=== PATIENT | male | born 1970 | race Caucasian/White ===

== ENCOUNTER 2018-02-18 20:25 | Emergency (ER) | payer SELFPAY ==
[2018-02-18] MEDS ORDERED: HYDROCODONE/ACETAMINOPHEN 5-325 MG TABLET PO ONE (21:56)
--- NOTE | 2018-02-18 22:07 | RADIOLOGY REPORT (SQ) ---
EXAM DESCRIPTION: XR KNEE 4 OR MORE VIEWS COMPLETED DATE/TME: 02/18/2018 00:00 CLINICAL HISTORY: 47 years, Male, Twisted R knee 1 wk ago. Swollen/ sore Findings: Bony alignment is anatomic. No fracture or dislocation. No significant joint effusion. Tibia right is in place. IMPRESSION: No fracture.
[2018-02-18] MEDS ORDERED: HYDROCODONE/ACETAMINOPHEN 5-325 MG (6 TAB/ER DISP) PO PRN (22:14)
--- NOTE | 2018-02-18 22:17 | ER Document Report ---
HPI - HPI Patient complains to provider of: Right knee pain Time Seen by Provider: 02/18/18 21:49 Onset: Last week Onset/Duration: Persistent Quality of pain: Achy Pain Level: 4 Context: Patient states he was walking and accidentally twisted his knee last week. Patient complains of persistent right knee pain since then. Associated Symptoms: Other - Right knee pain Exacerbated by: Standing, Movement, Walking Relieved by: Denies Similar symptoms previously: No Recently seen / treated by doctor: No - ROS ROS below otherwise negative: Yes Systems Reviewed and Negative: Yes All other systems reviewed and negative - NEURO Neurology: DENIES: Weakness - MUSCULOSKELETAL Musculoskeletal: REPORTS: Extremity pain, Swelling - DERM Skin Color: Normal Skin Problems: None Past Medical History - General Information source: Patient - Social History Smoking Status: Current Every Day Smoker Smoking Education Provided: Yes Frequency of alcohol use: Occasional Drug Abuse: None Occupation: [employer] Lives with: Family Family History: Reviewed & Not Pertinent - Medical History Medical History: Negative Past Surgical History: Reports: Hx Herniorrhaphy, Hx Orthopedic Surgery Vertical Provider Document - CONSTITUTIONAL Agree With Documented VS: Yes Exam Limitations: No Limitations General Appearance: WD/WN, No Apparent Distress - INFECTION CONTROL TRAVEL OUTSIDE OF THE [place] IN LAST 30 DAYS: No - HEENT HEENT: Atraumatic, Normocephalic - NECK Neck: Normal Inspection - RESPIRATORY Respiratory: No Respiratory Distress - CARDIOVASCULAR Pulses: Normal: Popliteal, Dorsalis pedis - MUSCULOSKELETAL/EXTREMETIES Musculoskeletal/Extremeties: MAEW, FROM, Tender - Right knee joint tenderness to lateral superior and medial inferior compartments. Mild joint effusion. Normal skin color and temperature overlying joint. No laxity with varus or valgus maneuvers. Patellar tendon intact, Edema - NEURO Level of Consciousness: Awake, Alert, Appropriate Motor/Sensory: No Motor Deficit - DERM Integumentary: Warm, Dry, No Rash Course - Diagnostic Test Radiology reviewed: Reports reviewed Procedures - Immobilization Right Knee Pre-Proc Neuro Vasc Exam: Normal Immobilizer type: Knee immobilizer Performed by: PCT Post-Proc Neuro Vasc Exam: Normal Alignment checked and good: Yes Discharge - Discharge Clinical Impression: Right knee sprain Qualifiers: Encounter type: initial encounter Involved ligament of knee: unspecified ligament Qualified Code(s): S83.91XA - Sprain of unspecified site of right knee , initial encounter Condition: Stable Disposition: HOME, SELF-CARE Instructions: Use of Crutches ([facility]), Ice & Elevation ([facility]), Knee Immobilizing Splint ([facility]), Oral Narcotic Medication ([facility]), Sprained Knee ([facility]) Additional Instructions: Return immediately for any new or worsening symptoms Followup with your primary care provider, call tomorrow to make a followup appointment Weight bearing as tolerated Follow up with orthopedics for any persistent pain or problems Prescriptions: Naproxen [Naprosyn 250 Nmg Tablet] 1 tab PO BID #14 tablet Forms: Smoking Cessation Education, Return to Work Referrals: [facility] ([place]) [Provider Group] - Follow up as needed
[2018-02-18 22:40] VITALS: BP 116/57
== END 2018-02-18 22:39 | disposition home or self-care (01) ==
LOC: ER 20:25
DX: S83.91XA Sprain of unspecified site of right knee, initial encounter (principal); M25.561 Pain in right knee; X50.1XXA Overexertion from prolonged static or awkward postures, initial encounter; F17.200 Nicotine dependence, unspecified, uncomplicated
CPT/HCPCS: 99284; 73564; L1830

== ENCOUNTER 2018-03-21 12:17 | Emergency (ER) | payer SELFPAY ==
[2018-03-21] MEDS ORDERED: LIDOCAINE 1% INJ-PF (10 MG/ML) 30 ML SDV INJ ONE (13:12)
--- NOTE | 2018-03-21 13:34 | ER Document Report ---
HPI - HPI Time Seen by Provider: 03/21/18 13:12 Pain Level: 3 Notes: Patient is a 48-year-old male who presents to the ED complaining of left medial wrist pain shortness of breath laceration status post injury prior to arrival. 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 Patient states that he does not have any other associated pain to the wrist or the hand. Is able to move his hand without any difficulties. No associated numbness or tingling. Denies any drug allergies. No IV drug abuse. Denies any headache, fever, head injury, LOC, neck pain, changes in vision/speech/mentation/hearing, URI, sore throat, chest pain, palpitations, syncope, cough, shortness of breath, wheeze, dyspnea, abdominal pain, nausea/vomiting/diarrhea, urinary retention, dysuria, hematuria, muscle paralysis/weakness, or rash. - ROS Systems Reviewed and Negative: Yes All other systems reviewed and negative - MUSCULOSKELETAL Musculoskeletal: REPORTS: Extremity pain Past Medical History - Social History Smoking Status: Current Every Day Smoker Family History: Reviewed & Not Pertinent Patient has suicidal ideation: No Patient has homicidal ideation: No Renal/ Medical History: Denies: Hx Peritoneal Dialysis Past Surgical History: Reports: Hx Herniorrhaphy, Hx Orthopedic Surgery Vertical Provider Document - CONSTITUTIONAL Agree With Documented VS: Yes Notes: PHYSICAL EXAMINATION: GENERAL: Well-appearing, well-nourished and in no acute distress. HEAD: Atraumatic, normocephalic. EYES: Pupils equal round and reactive to light, extraocular movements intact, sclera anicteric, conjunctiva are normal. ENT: Nares patent and without discharge. oropharynx clear without exudates. No tonsilar hypertrophy or erythema. Moist mucous membranes. NECK: Normal range of motion, supple without lymphadenopathy LUNGS: Breath sounds clear to auscultation bilaterally and equal. No wheezes rales or rhonchi. HEART: Regular rate and rhythm without murmurs, rubs, gallops. Musculoskeletal: Lt wrist/hand: FROM to passive/active. Strength 5+/5. + irregular, superficial, 2cm laceration noted to the medial wrist. No active bleeding. No obvious foreign body. Extremities: No cyanosis, clubbing, or edema b/l. Peripheral pulses 2+. Capillary refill less than 3 seconds. NEUROLOGICAL: Cranial nerves grossly intact. Normal speech, normal gait. Normal sensory, motor exams PSYCH: Normal mood, normal affect. SKIN: Warm, Dry, normal turgor, no rashes or lesions noted. - INFECTION CONTROL TRAVEL OUTSIDE OF THE [place] IN LAST 30 DAYS: No Course - Re-evaluation Re-evalutation: 03/21/18 14:29 Patient is an afebrile, well-hydrated, 48-year-old male who presents to the ED with a skin laceration to his left wrist. Vitals are acceptable. PE is otherwise unremarkable for any neurovascular compromise, obvious transitionally rupture, obvious fracture/dislocation, septic joint. Wound was thoroughly irrigated and cleansed. Wound edges were approximated appropriately utilizing 6 interrupted sutures. Wound dressing was placed and wound instructions reviewed. Tetanus is reported to be up-to-date within the last year. No labs or imaging warranted at this time. I will send him home with a prescription for Keflex. Conservative measures otherwise for symptoms. Recheck with your PCM in 2-3 days. Return to the ED with any worsening/concerning symptoms otherwise as reviewed. Sutures will need removed in 10 days. Patient is in agreement. - Vital Signs Vital signs: Temp Pulse Resp BP Pulse Ox 98.0 F 71 16 121/75 94 03/21/18 12:22 03/21/18 12:22 03/21/18 12:22 03/21/18 12:22 03/21/18 12:22 Discharge - Discharge Clinical Impression: Laceration of left wrist Qualifiers: Encounter type: initial encounter Qualified Code(s): S61.512A - Laceration wit hout foreign body of left wrist, initial encounter Condition: Stable Disposition: HOME, SELF-CARE Instructions: Antibiotic Ointment Protection ([facility]), Soap Cleansing ([facility]), Laceration Care ([facility]), Prophylactic Antibiotic ([facility]) Additional Instructions: Do not shower or bathe for 24 hours. After 24 hours you may shower but no submersion of the wound under water. Keep the original dressing on the wound for 24 hours unless the drainage soaks through. Change the dressing daily thereafter and keep the knots of the suture material clean from any dried discharge. You may leave the wound open to the air once there is no more discharge. Return to the ED and/or your PCM in 2-3 days for a recheck. Monitor for any signs of worsening pain or redness, purulent drainage, streaks, and/or fever. Return to the ED if noticing any of the above symptoms or as needed. Take medications as directed. Your sutures will need to be removed in 10 days. Prescriptions: Cephalexin Monohydrate [Keflex 500 mg Capsule] 500 mg PO BID #14 capsule Forms: Smoking Cessation Education Referrals: [facility] ([place]) [Provider Group] - Follow up as needed
[2018-03-21 14:47] VITALS: BP 126/75
== END 2018-03-21 14:52 | disposition home or self-care (01) ==
LOC: ER 12:17
DX: S61.512A Laceration without foreign body of left wrist, initial encounter (principal); R06.02 Shortness of breath; W45.0XXA Nail entering through skin, initial encounter; Y93.H3 Activity, building and construction; Y99.0 Civilian activity done for income or pay; F17.200 Nicotine dependence, unspecified, uncomplicated
CPT/HCPCS: 99282; J3490